=== PATIENT | male | born 1970 | race African-American/Black ===

== ENCOUNTER 2020-07-13 07:06 | Emergency (ER) | payer OTHER ==
[~2020-07-13] VITALS: Ht 172.7 cm; Wt 77.1 kg
[2020-07-13 07:14] VITALS: BP 147/99
--- NOTE | 2020-07-13 07:23 | Emergency Room Report ---
History of Present Illness General Chief Complaint: Pain Source: EMS Present Illness HPI Disclaimer: Please note that this report is being documented using DRAGON technology. This can lead to erroneous entry secondary to incorrect interpretation by the dictating instrument. HPI: 49-year-old male presents for evaluation of left shoulder pain. Symptoms present approximately 3 days. He reports worsening pain over the anterior shoulder and over the left bicep. Pain is exacerbated by movement and relieved by rest. He took Tylenol once without relief. Denies numbness or tingling. Denies chest pain, palpitations, shortness of breath, lightheadedness, back pain . No prior history of injury. Denies recent overuse. He reports increasing stiffness. PMH: Hypertension PSH: Denied Allergies: Denied Social Hx: Denied Allergies: Coded Allergies: No Known Allergies (Unverified , 07/13/20) COVID-19 Screening Contact w/high risk pt: No Experienced COVID-19 symptoms?: No COVID-19 Testing performed TAXATION CONSULTANT: No Nursing Documentation-PMH Past Medical History: No History, Except For Hx Hypertension: Yes Review of Systems All Other Systems: negative except mentioned in HPI Physical Exam Vital Signs Date Time Temp Pulse Resp B/P (MAP) Pulse Ox O2 Delivery O2 Flow Rate FiO2 07/13/20 07:03 98.8 80 20 147/99 (115) 100 General: Awake and alert, no acute distress HEENT: NC/AT. EOMI. Resp: Normal work of breathing Skin: Intact. No abrasions, laceration or rash over the exposed skin MSK: Normal tone and bulk. Moving all extremities. No obvious deformity. There is tenderness palpation over the anterior and lateral portion of the shoulder without obvious effusion. Limitation to range of motion on active testing up to 90 degrees abduction. Difficulty with full extension at the elbow and some tenderness palpation over the biceps as well. Shoulder joint is in anatomic position. There are some tenderness palpation over the deltoid as well. Neuro: Awake and alert. Mentating appropriately. Sensation of the deltoid is intact. Medical Decision Making Diagnostic Impression: Primary Impression: Acute pain of left shoulder ER Course Is a 49-year-old right-handed male presenting for evaluation of left shoulder pain for 3 days. Differential includes is not limited to osteoarthritis, telemetry arthritis, gout, shoulder impingement, occult trauma, dislocation, Glenohumeral instability, rotator cuff tear, biceps tendon tear, bursitis. X- rays obtained showed no bony injury or dislocation. Patient's presentation most consistent with a ligamentous injury. Provided with sling and will discharge with NSAIDs. Instructed how to perform range of motion exercises and referred to orthopedic follow-up. Instructed to return with new or worsening symptoms. He understands and agrees with the treatment plan. Other X-Ray Diagnostic Results Other X-Ray Diagnostic Results : X-Ray ordered: Shoulder left # of Views/Limited Vs Complete: Complete Indication: Pain EP Interpretation: Yes Interpretation: no dislocation, no soft tissue swelling, no fractures Impression: No acute disease Electronically Signed by: Electronically signed by Dr. Reji Braron MD Last Vital Signs Date Time Temp Pulse Resp B/P (MAP) Pulse Ox O2 Delivery O2 Flow Rate FiO2 07/13/20 07:14 98.8 80 20 147/99 100 Disposition: HOME, SELF-CARE Condition: Stable Scripts Ibuprofen* (MOTRIN*) 600 Mg Tablet 600 MG ORAL Q6H PRN for For Pain, #30 TAB 0 Refills Prov: Reji Barron MD 07/13/20 Reji Barron MD Jul 13, 2020 07:23
[2020-07-13] MEDS ORDERED: IBUPROFEN600 M1 ORAL (07:51)
[2020-07-13 07:56] VITALS: BP 135/74
--- NOTE | 2020-07-13 07:57 | Diagnostic Imaging Report ---
EXAM: XR Left Shoulder Complete, 2 or More Views CLINICAL HISTORY: PAIN TECHNIQUE: Two or more views of the left shoulder. COMPARISON: No relevant prior studies available. FINDINGS: Bones/joints: Unremarkable. No acute fracture. No dislocation. Soft tissues: Unremarkable. IMPRESSION: Normal left shoulder x-rays.
== END 2020-07-13 07:56 | disposition home or self-care (01) ==
LOC: EDBD 07:06 → EMR 07:36
DX: M25.512 Pain in left shoulder (principal); I10 Essential (primary) hypertension
CPT/HCPCS: 99283